=== PATIENT | female | born 1960 | race African-American/Black ===

== ENCOUNTER → 2017-11-17 12:30 | Outpatient (CLI) | payer SELFPAY ==
--- NOTE | 2017-11-17 | FLU_PTH ---
PATIENT: LALO WALKER LOC: [facility] U#:[id number] AGE/SX: 65/F ROOM: RE11/17/[address]: Dr. Annmarie Gonzales MD : 1960 BED: DIS: SPEC #: [id number] RECD: 11/17/17 14:02 STATUS: BESSIE MEJIA #: [id number] AUREA: 11/17/17 00:[address]: Annmarie Gonzales DEPT: CYTOLOGY RECD BY: Evan Solorio ENTERED: 11/17/17 14:02 SP TYPE: Fluid OTHR DR: Dr. Jeremiah Norman MD Tissues: Thyroid gland, NOS Procedures: Pap Stain (control) Special Stain Group II Surgery Specimen Level IV Cell Block Cytospin Fluid HEADER OPERATION: Ultrasound-guided fine needle aspiration, left thyroid PRE-OP DIAGNOSIS: Left thyroid nodule TISSUE SUBMITTED: FNA left thyroid fluid for cytology DIAGNOSIS CYTOLOGY Left thyroid fluid, ultrasound-guided FNA (cytospin and cell block): Nondiagnostic specimen. The specimen consists of blood only. SJ:rg 11/18/17 COMMENT Please make reference to previous specimen ([id number]) left thyroid, FNA with diagnosis of benign peripheral blood and ([id number]) left thyroid, ultrasound-guided FNA with diagnosis of negative for malignant cells. CYTOLOGY STUDY Slides are reviewed. CYTOLOGY GROSS Received is 30 ml of red cloudy fluid labeled with the patient's name and and designated per the requisition as left thyroid. Submitted for cytology preparation including cell block. / 11/17/17 TC: Cannot code CPT: 66502, 10961
== END ==
PROVIDERS: Family Provider Family Medicine; PCP Family Medicine; Visit Provider Surgery
DX: E04.1 Nontoxic single thyroid nodule (principal)
CPT/HCPCS: 88108; 88305; 88313